=== PATIENT | female | born 1950 | race Caucasian/White ===

== ENCOUNTER 2019-04-24 01:12 | Observation (INO) ==
[2019-04-24] MEDS ORDERED: CATAPRES PO ONE (02:11)
[2019-04-24] MEDS ORDERED: MORPHINE IV ONE (02:13)
[2019-04-24] MEDS ORDERED: PHENERGAN IV ONE (02:13)
[2019-04-24] MEDS ORDERED: SODIUM CHLORIDE 0.9% INJ ONE (02:14)
[2019-04-24 02:49] LABS: AGAP 14; BUN 12 mg/dL (8-22); CALCIUM 9.4 mg/dL (8.8-10.2); CHLORIDE 97 mmol/L (98-107); COSMO 283; CREATININE 0.7 mg/dL (0.5-0.9); ESTIMATED GFR > 60; GLUCOSE 197 mg/dL (70-104); POTASSIUM 3.7 mmol/L (3.5-5.1); SODIUM 139 mmol/L (136-145); TCO2 28 mmol/L (25-35)
[2019-04-24] MEDS ORDERED: NITROGLYCERIN TOP ONE (03:04)
[2019-04-24] MEDS ORDERED: TYLENOL PO ONE ×2 (03:04→03:47)
[2019-04-24 03:18] LABS: BASO# 0.06 X1000 (0.0-0.2); BASO% 0.5 % (0.0-0.8); EOS# 0.13 X1000 (0.0-0.7); EOS% 1.2 % (0.0-10.0); HEMATOCRIT 47.7 % (37.0-47.0); HEMOGLOBIN 16.5 g/dL (12.0-16.0); IMM GRAN# 0.07 X1000 (0.0-0.04); IMM GRAN% 0.6 % (0.0-0.5); LYMPH# 3.91 X1000 (1.2-3.4); LYMPH% 35.7 % (20.5-51.1); MCH 28.9 PG (27-31); MCHC 34.6 g/dL (33-37); MCV 83.7 FL (81-99); MONO# 1.01 X1000 (0.11-0.59); MONO% 9.2 % (1.7-9.3); MPV 10.4 FL (7.4-10.4); NEUT# 5.76 X1000 (1.4-6.5); NEUT% 52.8 % (42.2-75.2); PLT 260 X1000 (130-400); RDW 13.4 % (11.5-14.5); WBC 10.94 X1000 (4.8-10.8)
[2019-04-24 03:21] LABS: INR 0.83; PROTIME 11.8 Seconds (11.0-16.0)
[2019-04-24] MEDS ORDERED: ZOFRAN IV ONE (03:32)
--- NOTE | 2019-04-24 03:39 | PROVIDER DOCUMENTATION ---
HPI-Chest Pain - General Chief Complaint: Chest Pain Stated Complaint: IRREGULAR BP/CHEST PAIN Time Seen by Provider: 04/24/19 02:03 Allergies/Adverse Reactions: Patient Allergies Allergy/AdvReac Type Severity Reaction Status Date / Time azithromycin [From Zithromax] Allergy Severe SHORTNESS Verified 09/04/16 13:42 OF BREATH doxycycline Allergy Severe SHORTNESS Verified 09/04/16 13:42 OF BREATH metronidazole Allergy Severe SHORTNESS Verified 09/04/16 13:42 OF BREATH sertraline HCl * Allergy Severe SHORTNESS Verified 09/04/16 13:42 [From Zoloft] OF BREATH Sulfa (Sulfonamide Allergy Severe SHORTNESS Verified 09/04/16 13:42 Antibiotics) OF BREATH [Sulfa(Sulfonamide Antibiotics)] amoxicillin trihydrate * Allergy Intermediate RASH Verified 09/04/16 13:42 [From Amoxil] moxifloxacin HCl * Allergy Intermediate RASH Verified 09/04/16 13:42 [From Avelox] escitalopram oxalate * Allergy Unknown Unknown Verified 09/04/16 13:42 [From Lexapro] ramipril [From Altace] Allergy Unknown Unknown Verified 09/04/16 13:42 ciprofloxacin [From Cipro] Allergy Unknown Verified 09/04/16 13:42 ciprofloxacin HCl * Allergy Unknown Verified 09/04/16 13:42 [From Cipro] prednisone AdvReac SWELLING Verified 09/04/16 13:42 Home Medications: Home Medication List Medication Instructions Recorded Confirmed Last Taken Type Diazepam 5 mg PO BID 08/25/12 09/11/16 09/10/16 20:00 History Olmesartan [Benicar] 20 mg PO BID 08/25/12 12/25/18 09/10/16 20:00 History Trandolapril/Verapamil HCl [Tarka 1 tab PO DAILY 10/17/14 09/11/16 09/10/16 20:00 History ER 2-240 mg Tablet] Cholestyramine (with Sugar) 378 gm PO PRN PRN 04/23/16 09/11/16 09/10/16 20:00 History [Cholestyramine Powder] Valerian Root 100 mg PO DAILY 04/23/16 09/11/16 09/10/16 20:00 History Levothyroxine [Synthroid] 150 microgm PO DAILY 09/04/16 12/25/18 09/11/16 05:52 History Liothyronine Sodium [Cytomel] 25 mcg PO DAILY 09/04/16 12/25/18 Unknown History [place]/Na Phos/Meth Blue/Hyos 1 each PO TID #10 tablet 09/11/16 Unknown Rx [Urogesic-Blue] Glimepiride [Amaryl] 2 mg PO DAILY #30 tablet 08/28/17 Unknown Rx Hydrocodone/Acetaminophen [[place] 1 ea PO Q4-6H PRN PRN #20 tab 10/09/17 Unknown Rx 7.5-325 Tablet] - History of Present Illness-CP Location: reports: substernal Chest Pain Radiation: reports: no radiation Quality of Pain: reports: aching, pressure Severity in ED: moderate Onset/Duration: 4-6 hours ago Timing: still present, getting worse (CHEST PRESSURE TODAY ASSOC WITH BOUT OF UNCONTROLLED BP, UPT TO 234/120, TOOK HER TARKA AND BENICAR, VALIUM BUT STILL SRINIVASA BP. NEG CARDIAC HX. PCP DR ELAINE. ALOS MOD SEVERE PAIN OF RIGHT BELTLINE LOW BACK) Context/Activities at Onset: reports: none. denies: recent emotional stress Modifying Factors: improves with: nothing Nitro Today/Relief: no nitro taken today Aspirin Treatment Today: no aspirin today Prior Chest Pain/Cardiac Workup: reports: no prior chest pain. denies: cardiac cath, heart attack Similar Symptoms Previously?: No Review of Systems - Adult - REVIEW OF SYSTEMS - ADULT Constitutional: reports: no symptoms reported. denies: chills, fever Eyes: reports: no symptoms reported Ears, Nose, Mouth & Throat: reports: no symptoms reported Cardiovascular: reports: no symptoms reported Respiratory: reports: no symptoms reported Gastrointestinal: reports: no symptoms reported Genitourinary: reports: no symptoms reported Musculoskeletal: reports: no symptoms reported Integumentary: reports: no symptoms reported Neurological: reports: no symptoms reported Psychiatric: reports: no symptoms reported Endocrine: reports: no symptoms reported Hematologic/Lymphatic: reports: no symptoms reported Allergic/Immunologic: reports: no symptoms reported All Other Systems: Reviewed and Negative Past History - Adult - PAST MEDICAL HISTORY-ADULT Review of Records: reports: Nursing Assessment Review, Medications Reviewed, Social history reviewed & non-contributory. Major Childhood Illnesses: reports: denies history Cardiovascular: reports: HTN. denies: cardiac disease, angina, congenital heart disease, heart valve problem, palpitations Respiratory: reports: denies history Gastrointestinal: reports: colitis, GERD, other (diverticulitis) Obstetrical/Gynecological: reports: denies history Genitourinary: reports: chronic UTI's, other (dysuria) Musculoskeletal: reports: denies history Neurological: reports: denies history Psychiatric: reports: denies history Endocrine/Immune: reports: Diabetes, thyroid disorder Other Conditions: reports: denies history - PRIOR SURGERIES/PROCEDURES Surgical/Procedure History: reports: appendectomy, cholecystectomy, hysterectomy , bowel surgery - IMMUNIZATION STATUS Childhood Immunizations: See Nurse Assessment Flu Vaccine: See Nurse Assessment - FAMILY HISTORY Family History: reviewed, not pertinent Physical Exam-General - PHYSICAL EXAM-ADULT Initial Vital Signs Reviewed: Yes (htn) - CONSTITUTIONAL General Appearance: alert, mild distress - EYES Eyes: PERRL/EOMI, pink conjunctivae - HEAD, EARS, NOSE, MOUTH & THROAT HENMT: normocephalic/atraumatic, moist mucous membranes - NECK Neck: full range of motion - RESPIRATORY Respiratory: lungs clear, no respiratory distress - CARDIOVASCULAR Cardiovascular: normal peripheral pulses, regular rate, rhythm, no edema, no JVD , no murmur - GASTROINTESTINAL (ABDOMEN) Abdominal Exam: non tender, soft, no organomegaly - MUSCULOSKELETAL Back Exam: normal inspection, no CVA tenderness, no vertebral tenderness Extremity: normal range of motion, non-tender, normal gait, normal inspection, no pedal edema, no calf tenderness, normal capillary refill - SKIN Integumentary: normal color, normal turgor, warm/dry - NEUROLOGIC Neurologic: alarm mechanic II-XII nml as tested, grossly normal, no motor/sensory deficits. negative: motor weakness - PSYCHIATRIC Psych/Mental Status: normal mood/affect, normal thought content, normal thought process, oriented x 3 - HEART Score HEART Score: History: Moderately Suspicious HEART Score: ECG: Non-Specific Repolarization Disturbance/LBBB/PM HEART Score: Age: > or = 65 Years HEART Score: Risk Factors for Atherosclerotic Disease: 1 or 2 Risk Factors HEART Score: Troponin: < or = Normal Limit Total HEART Score:: 5 Progress - PLAN OF CARE/RESULTS Progress/Plan/Lab Results: Vital Signs - 8 hr 04/24/19 01:16 Temperature 99.3 F Pulse Rate 96 H Respiratory Rate 16 Blood Pressure 234/113 O2 Sat by Pulse Oximetry 94 L Laboratory Results - last 24 hr 04/24/19 04/24/19 04/24/19 01:30 01:30 01:30 WBC 10.94 H RBC 5.70 H Hgb 16.5 H Hct 47.7 H MCV 83.7 MCH 28.9 MCHC 34.6 RDW Std Deviation 13.4 Plt Count 260 MPV 10.4 Immature Gran % (Auto) 0.6 H Neut % (Auto) 52.8 Lymph % (Auto) 35.7 [place] % (Auto) 9.2 Eos % (Auto) 1.2 Baso % (Auto) 0.5 Immature Gran # (Auto) 0.07 H Neut # (Auto) 5.76 Lymph # (Auto) 3.91 H [place] # (Auto) 1.01 H Eos # (Auto) 0.13 Baso # (Auto) 0.06 PT INR PTT (Actin FS) Sodium 139 Potassium 3.7 Chloride 97 L Carbon Dioxide 28 Anion Gap 14 BUN 12 Creatinine 0.7 Estimated GFR/1.73 m2 > 60 BUN/Creatinine Ratio 17 Glucose 197 H Calculated Osmolality 283 Calcium 9.4 Magnesium 1.8 Troponin T Rcb-H-Diflqwjpypd Pept Urine Color Urine Clarity Urine pH Ur Specific [place] Urine Protein Urine Ketones Urine Blood Urine Nitrite Urine Bilirubin Urine Urobilinogen Urine WBC Urine Glucose 04/24/19 04/24/19 04/24/19 01:30 01:30 01:30 WBC RBC Hgb Hct MCV MCH MCHC RDW Std Deviation Plt Count MPV Immature Gran % (Auto) Neut % (Auto) Lymph % (Auto) [place] % (Auto) Eos % (Auto) Baso % (Auto) Immature Gran # (Auto) Neut # (Auto) Lymph # (Auto) [place] # (Auto) Eos # (Auto) Baso # (Auto) PT 11.8 INR 0.83 PTT (Actin FS) 26.0 Sodium Potassium Chloride Carbon Dioxide Anion Gap BUN Creatinine Estimated GFR/1.73 m2 BUN/Creatinine Ratio Glucose Calculated Osmolality Calcium Magnesium Troponin T < 0.010 Oof-N-Kxqxfgvfdmq Pept 141 Urine Color Urine Clarity Urine pH Ur Specific [place] Urine Protein Urine Ketones Urine Blood Urine Nitrite Urine Bilirubin Urine Urobilinogen Urine WBC Urine Glucose 04/24/19 02:00 WBC RBC Hgb Hct MCV MCH MCHC RDW Std Deviation Plt Count MPV Immature Gran % (Auto) Neut % (Auto) Lymph % (Auto) [place] % (Auto) Eos % (Auto) Baso % (Auto) Immature Gran # (Auto) Neut # (Auto) Lymph # (Auto) [place] # (Auto) Eos # (Auto) Baso # (Auto) PT INR PTT (Actin FS) Sodium Potassium Chloride Carbon Dioxide Anion Gap BUN Creatinine Estimated GFR/1.73 m2 BUN/Creatinine Ratio Glucose Calculated Osmolality Calcium Magnesium Troponin T Buo-H-Kfcdtgffbzp Pept Urine Color YELLOW Urine Clarity CLEAR Urine pH 7.0 Ur Specific [place] 1.005 Urine Protein 1+(30 mg/dL) A Urine Ketones NEGATIVE Urine Blood NEGATIVE Urine Nitrite NEGATIVE Urine Bilirubin NEGATIVE Urine Urobilinogen NORMAL Urine WBC NEGATIVE Urine Glucose NEGATIVE Orders Category Date Time Status Cardiac Monitoring DIRECTED Care 04/24/19 02:14 Active Saline Loc NOW Care 04/24/19 02:14 Active CHEST-PORTABLE [RAD] Stat Exams 04/24/19 02:17 Taken LUMBAR SPINE [RAD] Stat Exams 04/24/19 03:33 Taken BASIC METABOLIC PANEL [CHEM] Stat Lab 04/24/19 01:30 Completed CBC WITH ELECTRONIC DIFF [HEME] Stat Lab 04/24/19 01:30 Completed MAGNESIUM [CHEM] Stat Lab 04/24/19 01:30 Completed PRO B-NATRIURETIC PEPTIDE Stat Lab 04/24/19 01:30 Completed PROTIME WITH INR [COAG] Stat Lab 04/24/19 01:30 Completed PTT [COAG] Stat Lab 04/24/19 01:30 Completed TROPONIN T Stat Lab 04/24/19 01:[address] W/POSS RFLX CULT [URINALYSIS] Stat Lab 04/24/19 02:00 Results Acetaminophen [Tylenol] Med 04/24/19 03:04 Discontinued 650 mg PO NOW ONE Acetaminophen [Tylenol] Med 04/24/19 03:47 Discontinued 650 mg PO NOW ONE Clonidine [Catapres] Med 04/24/19 02:11 Discontinued 0.2 mg PO NOW ONE Morphine Med 04/24/19 02:13 Discontinued 4 mg IV NOW ONE Nitroglycerin Med 04/24/19 03:04 Discontinued 1 inch TOP NOW ONE Ondansetron [Zofran] Med 04/24/19 03:32 Discontinued 8 mg IV NOW ONE Promethazine [Phenergan] Med 04/24/19 02:13 Discontinued 12.5 mg IV NOW ONE Sodium Chloride 0.9% Med 04/24/19 02:14 Discontinued 10 ml INJ NOW ONE EKG [EKG] Stat Ther 04/24/19 02:14 Draft Result Diagrams: 04/24/19 01:30 04/24/19 01:30 - REASSESSMENT Reassessment #1 Time Reassessed: 03:40 Status: improving (CP BETTER, NAUSEATED, STILL WITH LUMBAR BACK PAIN) Reassessment #2 Time Reassessed: 04:51 Status: improving (bp down to 139/70, x-rays unremarkable, trop not elevated.) - XRAY 1 XRAY Study: Chest Impression: Normal 2 XRAY Study: Lumbar Spine Impression: Normal (no acute changes) - CONSULTS/PCP/HOSPITALIST Notification #1 *Consult/PCP/Hospitalist*: dr Vicenta Ku Time Discussed: 05:20 Consult Disposition: Admit Departure - Departure Date of Disposition Decision: 04/24/19 Time of Disposition Decision: 05:20 DIAGNOSIS: Chest pain, Uncontrolled hypertension Disposition: ADMITTED INPATIENT 09 Certified Medical Emergency: Emergent Condition: Stable Referrals and Follow-Ups: Matthew Trejo MD [Primary Care Provider] - - Critical Care Note This patient required my direct & personal management of CC.: No Attestation - Physician/ BRONWYN Attestation Patient care was provided by Advanced Practice Provider:: No The physician spent face to face time with patient:: Yes Advanced Practice Provider documentation review:: Supervising physician onsite and consulted in the evaluation and care of this patient. The physician did have a face to face encounter with the patient.
--- NOTE | 2019-04-24 03:40 | EKG Report ---
Test Performed on : 04/24/2019 01:18:35 AM Test Reason : HTN Blood Pressure : / mmHG Vent. Rate : 103 BPM Atrial Rate : 103 BPM P-R Int : 196 ms QRS Dur : 076 ms QT Int : 350 ms P-R-T Axes : 043 -24 049 degrees QTc Int : 458 ms Sinus tachycardia. Low voltage QRS Inferior infarct , age undetermined Cannot rule out Anterior infarct , age undetermined Abnormal ECG When compared with ECG of 25-DEC-2018 01:25, Inferior infarct is now present Nonspecific T wave abnormality, worse in Inferior leads QT has shortened Unconfirmed Result
[2019-04-24 05:18] LABS: BILIRUBIN URINE NEGATIVE (NEGATIVE); BLOOD URINE NEGATIVE (NEGATIVE); CLARITY CLEAR (CLEAR); COLOR YELLOW; GLUCOSE URINE NEGATIVE (NEGATIVE); KETONE URINE NEGATIVE (NEGATIVE); LEUKOCYTES URINE NEGATIVE (NEGATIVE); NITRITE URINE NEGATIVE (NEGATIVE); PROTEIN URINE 1+(30 mg/dL) mg/dL (NEGATIVE); SP GRAVITY URINE 1.005; UROBILINOGEN URINE NORMAL
[2019-04-24 05:31] LABS: URINE BACTERIA 2+ /HFP; URINE CAST NONE SEEN /LPF; URINE CRYSTAL NONE SEEN /HPF; URINE EPITHELIAL CELLS <10 /HPF (<10); URINE WBC 0-3 /HPF (<10); URINE YEAST NONE SEEN /HPF
[2019-04-24 05:32] LABS: URINE SOURCE CLEAN CATCH
[2019-04-24] MEDS ORDERED: NS 500 ML IV ONE (06:05)
--- NOTE | 2019-04-24 06:34 | EKG Report ---
Test Performed on : 04/24/2019 06:13:39 AM Test Reason : CP Blood Pressure : / mmHG Vent. Rate : 080 BPM Atrial Rate : 080 BPM P-R Int : 154 ms QRS Dur : 074 ms QT Int : 370 ms P-R-T Axes : 048 -01 047 degrees QTc Int : 426 ms Normal sinus rhythm. Low voltage QRS Nonspecific T wave abnormality Abnormal ECG When compared with ECG of 24-APR-2019 01:18, (Unconfirmed) Criteria for Inferior infarct are no longer present Unconfirmed Result
[2019-04-24] MEDS ORDERED: ZOFRAN IV PRN (06:48)
[2019-04-24] MEDS ORDERED: MORPHINE IV PRN (06:48)
--- NOTE | 2019-04-24 08:24 | Diag Imaging Result Doc PS360 ---
EXAM: LUMBAR SPINE INDICATION: LUMBAR PAIN TECHNIQUE: 7 views COMPARISON: 06/08/2017 FINDINGS: There is stable levoscoliosis. There is stable small ventral marginal osteophyte formation at multiple levels and stable loss of disc space height, predominantly at L1-2 and L2-3. The vertebral body heights are maintained. There is no evidence of fracture, subluxation, or significant intrinsic osseous lesion, otherwise. Surrounding soft tissues are essentially unremarkable. IMPRESSION: Multilevel degenerative arthropathy that is unchanged compared to prior study. Electronically signed by Mack Holt 04/24/2019 8:22 AM
--- NOTE | 2019-04-24 08:53 | Diag Imaging Result Doc PS360 ---
EXAM: CHEST-PORTABLE INDICATION: HTN,CP TECHNIQUE: One view COMPARISON: 12/25/2018 FINDINGS: The lungs are grossly clear. There is no discrete pleural fluid collection or pneumothorax. The cardiomediastinal silhouette and central vasculature are grossly unremarkable. IMPRESSION: No evidence of acute pathology by plain radiograph. Electronically signed by Mack Holt 04/24/2019 8:51 AM
[2019-04-24] MEDS ORDERED: SYNTHROID PO SCH (10:30)
[2019-04-24] MEDS: ASPIRIN PO SCH ×2 (11:38→11:41)
[2019-04-24] MEDS ORDERED: NORCO-7.5 PO PRN (11:44)
[2019-04-24] MEDS ORDERED: METAMUCIL POWDER PACKET PO PRN (11:44)
[2019-04-24] MEDS ORDERED: UROGESIC-BLUE PO PRN (11:44)
[2019-04-24] MEDS ORDERED: CYTOMEL PO SCH (11:45)
--- NOTE | 2019-04-24 12:42 | HISTORY AND PHYSICAL ---
PRIMARY CARE PHYSICIAN: Dr. Trejo. CHIEF COMPLAINT: Chest pain. HISTORY OF PRESENTING ILLNESS: This is a 69-year-old female who presented to [facility] ER after she states she began having some shortness of breath while she was at her 's chemotherapy appointment. When she came home, she sat in a folding chair and started having some chest pain. Denied being lightheaded or dizzy but states that she did get short of breath. States that she often gets chest pain when her blood pressure is elevated. When she arrived, her blood pressure was documented at 234/113 but then approximately 5 minutes later, it was documented at 109/50 and currently it is at 115/50. States that she has had a heart catheterization done approximately 15 years ago. Takes Benicar and Tarka for control of her blood pressure. Her chest pain was over her left breast and it went through into her back and right hip. Her workup showed 2 cardiac enzymes that were negative and EKG that showed sinus tachycardia at 103. She was admitted for further evaluation and treatment. PAST MEDICAL HISTORY: Hypertension, GERD, colitis, chronic UTIs, diabetes type 2, and hypothyroidism. PAST SURGICAL HISTORY: Appendectomy, cholecystectomy, hysterectomy, and a colon resection. FAMILY HISTORY: Reviewed and noncontributory. SOCIAL HISTORY: She is and lives with her . Denies any tobacco, alcohol, or illicit drug use. ALLERGIES: Sulfa, amoxicillin, moxifloxacin, citalopram, ramipril, Cipro, and prednisone. HOME MEDICATIONS: She takes cholestyramine 378 g powder p.r.n., diazepam 5 mg p.o. b.i.d., Lead[place] 7.5 p.o. q.4-6 hours p.r.n., Cytomel 25 mcg p.o. daily, metformin 500 mg p.o. b.i.d., Urogesic Blue t.i.d. p.r.n. for bladder spasms, valerian root p.r.n. will be held, verapamil ER 240 mg p.o. daily will be held. We will continue her Synthroid 112 mcg p.o. daily, Benicar 20 mg p.o. b.i.d., and trandolapril 4 mg p.o. daily. LABORATORY DATA: Showed a white blood cell count of 10.94, hemoglobin 16.5, hematocrit 47.7, platelets 260,000. PT and INR of 11.8 and 0.83 with a D-dimer of 0.41. Sodium 139, potassium 3.7, chloride 97, CO2 28, BUN of 12, creatinine 0.7, glucose 197. Troponin x2 sets had been negative. Magnesium of 1.8. ProBNP of 141. Urinalysis was negative except for 2+ bacteria. EKG showed sinus tachycardia at 103. Chest x-ray showed no evidence of acute pathology by plain radiograph. A lumbar spine x-ray showed multilevel degenerative arthropathy that is unchanged compared to prior study. REVIEW OF SYSTEMS: She denied any fever, chills, blurred vision, dizziness. She was positive for chest pain, high blood pressure, shortness of breath. She denied any abdominal pain, constipation, diarrhea. She did have some dysuria with urination. PHYSICAL EXAMINATION: VITAL SIGNS: On arrival, she had a temperature of 99.3 degrees, a pulse of 96, respirations 16, blood pressure was 234/113, saturating 94% on room air. Approximately, not even quite 10 minutes later, her blood pressure was down to 109/50 and currently it is at 115/50. HEENT: Normocephalic, atraumatic. Normal ENT inspection. Oropharynx and nares are clear. Eyes: Pupils are equal, round, and reactive to light and accommodation. Extraocular movements are intact. NECK: Normal inspection. Normal range of motion. LUNGS: Clear to auscultation bilaterally with equal lung expansion and chest wall movement. HEART: Regular rate and rhythm. No murmurs, rubs, or gallops. ABDOMEN: Soft, nontender, nondistended. Bowel sounds are present x4 quadrants. MUSCULOSKELETAL: She had 5/5 strength x4 extremities. NEUROLOGICAL: The cranial nerves 2-12 appear grossly intact. ASSESSMENT: 1. Chest pain. 2. Hypertension. 3. Diabetes type 2. 4. Some mild shortness of breath. PLAN: She was admitted to the medical unit. Placed on telemetry, healthy heart diet. We are going to obtain an echocardiogram. We will trend her troponin for 1 more set. Set her up for a Lexiscan in the a.m. Place her on aspirin 325 mg p.o. daily. Continue home medications as previously identified. Further orders after seen by attending. Dictated by MIGUEL Boyd for Sabas Valdez MD Addendum: Patient seen and examined by myself. Agree with MIGUEL note. It reflects my assessment and plan. Patient is being admitted to hospital for chest pain. She reported similar symptoms before and she got apparently a stress test done 15 years ago. Considering her age and comorbidities will order an echocardiogram and Lexiscan and will go from there. cc: MIGUEL Boyd MD Adnan A. Seljuki, MD [facility]
[2019-04-24] MEDS: CYTOMEL PO SCH (15:41)
[2019-04-24] MEDS: VALIUM PO SCH ×2 (15:44→20:46)
[2019-04-24] MEDS: GLUCOPHAGE XR PO SCH ×2 (15:44→20:46)
[2019-04-24] MEDS: BENICAR PO SCH (20:46)
[2019-04-25] MEDS: CYTOMEL PO SCH (06:01)
--- NOTE | 2019-04-25 06:38 | EKG Report ---
Test Performed on : 04/25/2019 05:57:21 AM Test Reason : chest pain Blood Pressure : / mmHG Vent. Rate : 078 BPM Atrial Rate : 078 BPM P-R Int : 158 ms QRS Dur : 084 ms QT Int : 462 ms P-R-T Axes : 049 -02 021 degrees QTc Int : 526 ms Normal sinus rhythm. Nonspecific T wave abnormality Prolonged QT Abnormal ECG No previous ECGs available Unconfirmed Result
[2019-04-25 07:26] LABS: BASO# 0.04 X1000 (0.0-0.2); BASO% 0.4 % (0.0-0.8); EOS% 2.2 % (0.0-10.0); HEMATOCRIT 45.7 % (37.0-47.0); HEMOGLOBIN 15.1 g/dL (12.0-16.0); IMM GRAN# 0.05 X1000 (0.0-0.04); IMM GRAN% 0.5 % (0.0-0.5); LYMPH% 38.9 % (20.5-51.1); MCH 28.2 PG (27-31); MCV 85.4 FL (81-99); MONO# 0.79 X1000 (0.11-0.59); MONO% 8.5 % (1.7-9.3); MPV 9.7 FL (7.4-10.4); NEUT# 4.58 X1000 (1.4-6.5); NEUT% 49.5 % (42.2-75.2); PLT 229 X1000 (130-400); RBC 5.35 XMIL (4.2-5.4); RDW 13.6 % (11.5-14.5); WBC 9.26 X1000 (4.8-10.8)
[2019-04-25 07:47] LABS: AGAP 11; BUN 17 mg/dL (8-22); CALCIUM 8.5 mg/dL (8.8-10.2); CHLORIDE 101 mmol/L (98-107); COSMO 286; CREATININE 0.7 mg/dL (0.5-0.9); ESTIMATED GFR > 60; GLUCOSE 154 mg/dL (70-104); POTASSIUM 3.9 mmol/L (3.5-5.1); SODIUM 141 mmol/L (136-145); TCO2 29 mmol/L (25-35)
[2019-04-25] MEDS: GLUCOPHAGE XR PO SCH ×2 (08:15→16:23)
[2019-04-25] MEDS: ASPIRIN PO SCH (08:15)
[2019-04-25] MEDS ORDERED: ISOPTIN SR PO SCH (09:00)
[2019-04-25] MEDS ORDERED: MAVIK PO SCH (09:00)
[2019-04-25] MEDS ORDERED: LEXISCAN ONE (10:00)
[2019-04-25] MEDS: BENICAR PO SCH (11:23)
[2019-04-25] MEDS ORDERED: SYNTHROID PO SCH (12:15)
[2019-04-25] MEDS: VALIUM PO SCH (13:41)
--- NOTE | 2019-04-25 13:53 | ECHO REPORT ---
ORDER DATE: 04/25/2019 INDICATION FOR THIS STUDY: Chest pain. FINDINGS: 1. The right atrium appears normal in size at 3.9 cm. 2. Mild tricuspid regurgitation. Insufficient data to estimate the RV systolic pressure. 3. Normal RV size and systolic function. 4. No significant pulmonic insufficiency. 5. Mild left atrial enlargement with a dimension of 4.5 cm. 6. No mitral valve prolapse. Trace mitral regurgitation. No evidence of mitral stenosis. 7. Normal LV size, end-diastolic dimension of 4.6. Mild left ventricular hypertrophy with a posterior and interventricular septal wall thickness of 1.2 cm each. Normal LV systolic function. The estimated EF is 60% to 65%. 8. The aortic valve opens well. It is trileaflet. No evidence of stenosis or insufficiency. 9. The aorta appears normal in visualized segments. 10. No pericardial effusion seen. cc: MD Sabas Mead MD
[2019-04-25 15:49] VITALS: BP 150/59
--- NOTE | 2019-04-25 17:50 | Diag Imaging Result Document ---
PROCEDURE NAME: MYOCARDIAL PERF SCAN, STR/REST - 04/24/2019 STUDY: Rest/stress Lexiscan myocardial perfusion study. INDICATION: Patient with chest pain. DESCRIPTION: The patient came into the nuclear lab and received a rest injection of technetium 99 sestamibi 15.5 mCi. Multiple tomographic views of the cardiac structures were obtained at rest. Subsequently, the patient underwent infusion of Lexiscan 0.4 mg. At peak infusion injected with technetium 99 sestamibi 45.6 mCi. Multiple tomographic views of the cardiac structures were obtained following completion of the protocol. SUMMARY OF THE ELECTROCARDIOGRAPH PORTION OF THE STUDY: Resting electrocardiogram shows sinus rhythm with a rate of 87 beats per minute. Resting blood pressure is 185/91. Resting ECG shows nonspecific T wave changes. During the protocol the heart rate increased to 109 beats per minute. Blood pressure went up to 191/81. The patient reported no chest pain, shortness of breath, or palpitations. The ECG shows some minor nonspecific T wave abnormalities. In summary, the electrocardiographic response to the infusion of Lexiscan is nonspecific. SUMMARY OF THE MYOCARDIAL PERFUSION PORTION OF THE STUDY: Poststress tomographic views of the left ventricle showed normal homogeneous distribution of radiotracer throughout the entire ventricular myocardium. There is no evidence of any poststress defect. The rest images showed normal perfusion. The polar plots revealed the same. There is no evidence of any inducible ischemia nor myocardial scar. The gated SPECT showed normal left ventricular systolic function with ejection fraction estimated at 83% with normal ventricular volumes and no wall motion abnormality. The lung/heart ratio is normal. TID is normal. CONCLUSION: In summary, this study shows: 1. Nonspecific electrocardiographic response to infusion of Lexiscan. 2. Normal poststress myocardial perfusion scan. There is no scintigraphic evidence of pharmacologically induced myocardial ischemia. 3. Normal left ventricular systolic function. Ejection fraction is 83%. Normal ventricular volumes. No wall motion abnormality. The study represents low risk for ischemic events. cc: MD Sabas Morris MD
--- NOTE | 2019-04-26 14:49 | DISCHARGE SUMMARY ---
ADMISSION DATE: 04/24/2019 DISCHARGE DATE: 04/25/2019 PRIMARY CARE PROVIDER: Dr. Trejo. PERTINENT PROCEDURES: 1. Chest x-ray. No evidence of acute pathology. 2. 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 3. Perfusion scan. There is no significant evidence of pharmacologically induced myocardial ischemia. 4. Echocardiogram EF of 60 to 65 percent. DISCHARGE DIAGNOSES: 1. Chest pain, rule out. The patient had a negative stress test, multiple sets of negative cardiac enzymes. She will need to follow up with her primary care provider within the next 1 to 2 weeks. 2. Hypertension. Continue home medications. 3. Diabetes mellitus type 2. Continue diabetic diet and home medications. 4. Hypothyroidism. Continue Synthroid. HOSPITAL COURSE: Briefly, Ms Guerrero is a 69-year-old female who presented to [facility] after having some shortness of breath while she was at her 's chemotherapy appointment. When she came home, she sat in her chair, started having some chest pain. She denied being lightheaded or dizziness but states bust states she did get short of breath. She often gets chest pain when her blood pressure is elevated. When she arrived to the ED, it was documented 234/113 but approximately 5 minutes later, it was documented at 109/50 and at the time of admission, her blood pressure was 115/50. Her last heart catheterization was 15 years ago. She takes Benicar and Tarak for control of her blood pressure. Her chest pain was over her left breast that went through her back to her right hip. She had a workup with 3 sets of cardiac enzymes that were negative. EKG that showed sinus tachycardia. She was admitted for chest pain rule out. She had an echocardiogram that showed a normal EF as well as a negative Lexiscan today., And she will be discharged back home with self care to follow up with her primary care provider, Dr. Trejo, in the next 7 to 10 days. VITAL SIGNS: At time of discharge, temperature is 98.1 degrees, heart rate 88, respirations 18, blood pressure 150/59, O2 is 94% on room air. DISCHARGE DIET: Healthy diabetic. DISCHARGE MEDICATIONS: 1. Benicar 20 mg p.o. b.i.d. 2. Cholestyramine 378 g p.o. p.r.n. 3. Cytomel p.o. daily. 4. Valium 5 mg p.o. b.i.d. 5. Metformin ER 500 mg p.o. b.i.d. 6. Synthroid 112 mcg p.o. daily. 7. Trandolapril 14mg p.o. daily. 8. Uribel capsule 1 cap p.o. t.i.d. p.r.n. bladder spasm. 9. Valerian root 100 mg p.o. daily. 10. Verapamil ER 240 mg p.o. daily. 11. [place] 7.5/325 one each p.o. q.4 q.6 hours p.r.n. FOLLOWUP: Ms. Guerrero is being discharged back home with self care. She is to follow up with her primary care provider, Dr. Trejo, within the next 7 to 10 days. She can return to the ED or call 911 for any worsening of symptoms. She is to take all her home medications as prescribed. She can return to the ED or call 911 for any worsening of symptoms. Dictated by MIGUEL Abreu for Sandro Donaldson MD cc: MD Matthew Beck MD
--- NOTE | 2019-04-26 15:58 | DISCHARGE SUMMARY ---
ADMISSION DATE: 04/24/2019 DISCHARGE DATE: 04/25/2019 ADDENDUM: Patient seen and examined by myself, full note dictated and discussed with nurse practitioner. Patient presented to the hospital with chest pain, diabetes, hypertension. She thankfully ruled out for an ID. She had a stress test done earlier today which also was negative. She therefore will be discharged home. Please see full note. cc: Sandro Donaldson MD
== END 2019-04-25 18:58 | disposition home or self-care (01) ==
LOC: P.ED 01:12 → SUATTDRO 06:42 → INTOOBSV 06:42 → P.MEDSURG 06:42
PROVIDERS: ATTEND Family Medicine
CPT/HCPCS: 71010; 71045; 72110; 78452; 80048; 81001; 82948; 83735; 83880; 84484; 85025; 85379; 85610; 85730; 87088; 93005; 93017; 93306; A9270; A9500; J2270; J2405; J2550; J2785; J7040; XXXXX